=== PATIENT | male | born 1990 | race Caucasian/White ===

== ENCOUNTER 2018-07-12 03:45 | Emergency (ER) | payer BC, OTHER ==
[2018-07-12] MEDS ORDERED: Lidocaine 1% 20 ML MDV ONE (04:03)
[2018-07-12] MEDS ORDERED: Lidocaine 1% 20 ML MDV INJECT ONE (04:21)
[2018-07-12] MEDS ORDERED: Diphtheria,Pertussis(Acell),Tetanus Vaccine 0.5 ML Syringe IM ONE (04:26)
[2018-07-12] MEDS ORDERED: Bacitracin/Neomycin/Polymyxin B Oint 0.9 GM U/D Packet TOP ONE (04:26)
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
== END 2018-07-12 04:35 | disposition home or self-care (01) ==
LOC: CC.ED 03:45
DX: S01.312A Laceration without foreign body of left ear, initial encounter (principal); S80.212A Abrasion, left knee, initial encounter; S60.511A Abrasion of right hand, initial encounter; F10.129 Alcohol abuse with intoxication, unspecified; Z23 Encounter for immunization; Y04.0XXA Assault by unarmed brawl or fight, initial encounter
CPT/HCPCS: 12013; 90471; 90715; 99282